=== PATIENT | female | born 1990 | race Asian ===

== ENCOUNTER 2016-10-08 23:14 | Emergency (ER) | payer OTHER ==
[~2016-10-08] VITALS: Ht 165.1 cm; Wt 61.7 kg
[2016-10-08 23:28] VITALS: BP 143/60
--- NOTE | 2016-10-08 23:55 | NUR ---
Patient ambulated to bed 03.
--- NOTE | 2016-10-08 23:57 | NUR ---
Dr. Lan evaluating patient at bedside.
--- NOTE | 2016-10-09 | NUR ---
26Y F BIB SELF S/P CAT BITE THIS MORNING, WITH PAIN , SWELLING, REDNESS AND SCRATCHES ON HER BOTH HANDS , UP TO DATE WITH TETANUS VACCINE
--- NOTE | 2016-10-09 00:06 | NUR ---
Bhaskar benavidez in [facility] - 10/09/16 at 0009 by ABBY XRAY at bedside.
[2016-10-09] MEDS ORDERED: AMOXIL/CLAVULANATE 500/125 MG 1 TAB PO ONE (00:20)
[2016-10-09] MEDS ORDERED: AMOXIL/CLAVULANATE 875/125 MG 1 TAB ONE (00:59)
[2016-10-09 01:18] VITALS: BP 135/66
--- NOTE | 2016-10-09 01:18 | NUR ---
Patient discharged with v/s stable. Written and verbal after care instructions given and explained. Patient alert, oriented and verbalized understanding of instructions. Ambulatory with steady gait. All questions addressed prior to discharge. ID band removed. Patient advised to follow up with PMD. Rx of MOTRIN 800MG, AUGMENTIN 875 BID given. Patient educated on indication of medication including possible reaction and side effects. Opportunity to ask questions provided and answered.
[2016-10-09] MEDS ORDERED: AMOXIL/CLAVULANATE 875/125 MG 1 TAB PO ONE (01:25)
== END 2016-10-09 01:18 | disposition home or self-care (01) ==
LOC: MED 23:14
DX: S61.451A Open bite of right hand, initial encounter (principal); W55.01XA Bitten by cat, initial encounter; Y93.89 Activity, other specified; Y92.89 Other specified places as the place of occurrence of the external cause; Y99.8 Other external cause status